=== PATIENT | male | born 1990 | race Hispanic/Latino ===

== ENCOUNTER 2017-11-26 10:01 | Emergency (ER) | payer SELFPAY ==
--- NOTE | 2017-11-26 10:29 | RAD ---
RIGHT HAND 3 VIEWS: Date: 11/26/17 HISTORY: Punched a wall. Injury. COMPARISON: None. FINDINGS: No displaced fracture or malalignment. Soft tissues unremarkable. IMPRESSION: No displaced fracture or malalignment. POS: [facility]
[2017-11-26] MEDS ORDERED: Bacitracin Zinc 1 Packet ONE (12:29)
[2017-11-26] MEDS ORDERED: Lidocaine 1% PF 5 ML VIAL ONE (12:29)
[2017-11-26] MEDS ORDERED: Adacel (T-DAP) 0.5 ML VIAL ONE ×2 (12:30→12:32)
[2017-11-26] MEDS ORDERED: cefTRIAXone\\ROCEPHIN 500 MG VIAL ONE (12:31)
== END 2017-11-26 13:11 | disposition home or self-care (01) ==
LOC: ERS 10:01
DX: S61.452A Open bite of left hand, initial encounter (principal); J45.909 Unspecified asthma, uncomplicated; F90.9 Attention-deficit hyperactivity disorder, unspecified type; Y04.1XXA Assault by human bite, initial encounter
CPT/HCPCS: 90471; 90715; 96372; J0696; J2001

== ENCOUNTER 2018-06-27 07:32 | Emergency (ER) | payer SELFPAY ==
[2018-06-27] MEDS ORDERED: Ondansetron ODT 8 MG TAB ONE (07:54)
--- NOTE | 2018-06-27 08:58 | RAD ---
LEFT SHOULDER 3 VIEWS: Date: 06/27/18 HISTORY: Left shoulder pain, injury. FINDINGS/IMPRESSION: No fracture or dislocation is identified. POS: OFF
[2018-06-27 09:21] LABS: #Basophils 0.1 thou/uL (0.0-0.2); #Eosinphils 0.1 thou/uL (0.0-0.7); #Lymphocytes 1.6 thou/uL (1.20-3.40); #Monocytes 0.7 thou/uL (0.11-0.59); #Neutrophils 6.5 thou/uL (1.40-6.50); %Basophils 0.6 % (0.0-1.0); %Eosinophils 0.7 % (0.0-10.0); %Lymphocytes 17.9 % (21.0-51.0); %Monocytes 8.2 % (0.0-10.0); %Neutrophils 72.5 % (42.0-75.0); Hemoglobin 16.5 g/dL (14.0-18.0); Mean Corpuscular HGB CONC 34.9 g/dL (32.0-36.0); Mean Corpuscular Volume 88.9 fL (78.0-98.0); Mean Platelet Volume 7.1 fL (7.4-10.4); Platelet Count 234 thou/uL (130-400); RBC Distribution Width 12.8 % (11.5-14.5); Red Blood Cell (RBC) Count 5.32 mill/uL (4.70-6.10); White Blood Cell (WBC) Count 8.9 thou/uL (4.8-10.8)
[2018-06-27] MEDS ORDERED: Morphine 4 MG/ML VIAL ONE (09:26)
--- NOTE | 2018-06-27 09:35 | RAD ---
RADIOGRAPH CHEST 1 VIEW: Date: 07-28-18 Time: 8:58 A.M. HISTORY: 28-year-old male with chest pain. Severe nausea and emesis. COMPARISON: 07-01-13 FINDINGS: Lungs are hypoinflated on the current study. New finding of a cluster of transversely oriented plate- like densities at the left lower lung zone laterally. The rest of the visualized lung perry are heather r. Magnification of the cardiac shadow. No pulmonary edema, pneumothorax, or pneumoperitoneum. IMPRESSION: 1. Pulmonary densities at the left base are consistent with either subsegmental atelectasis or pulmon raman scarring. 2. The rest of the lungs are clear. [place] POS: DEANNA
[2018-06-27 09:43] LABS: ALT (SGPT) 37 U/L (8-55); AST (SGOT) 27 U/L (5-34); Albumin 4.4 g/dL (3.5-5.0); Alkaline Phosphatase 91 U/L (40-150); Anion Gap 13 mmol/L (10-20); BUN (Urea Nitrogen) 12 mg/dL (8.9-20.6); Bilirubin, Total 0.6 mg/dL (0.2-1.2); Calc. Creatinine Clearance 0 mL/min (70-130); Calcium 9.4 mg/dL (7.8-10.44); Carbon Dioxide 23 mmol/L (22-29); Chloride 108 mmol/L (98-107); Estimated GFR-MDRD Greater than 90; Globulin 2.9 g/dL (2.4-3.5); Glucose 105 mg/dL (70-105); Potassium 3.7 mmol/L (3.5-5.1); Protein, Total 7.3 g/dL (6.0-8.3); Sodium 140 mmol/L (136-145)
[2018-06-27] MEDS ORDERED: ISOVUE-370 76%-LOCM 1 ML ONE (09:58)
[2018-06-27] MEDS ORDERED: Ketorolac Tromethamine 30 MG/ML VIAL ONE (10:07)
--- NOTE | 2018-06-27 10:33 | CT ---
CT BRAIN WITHOUT CONTRAST CT ANGIOGRAM HEAD WITH CONTRAST CT ANGIOGRAM NECK WITH CONTRAST: Date: 06/27/18 HISTORY: Left-sided neck pain and headache. COMPARISON: Brain CT from 2001. FINDINGS: No acute territorial infarct or hemorrhage. No midline shift or mass effect. Ventricular size and ext ra-axial CSF spaces are normal. Calvarium is intact. Paranasal sinuses and mastoids are clear. Globes are normal. The lung apices are clear. The cervical spinal alignment is normal. The vertebral arteries are codominant. No evidence of injury. [place] of [place] patent. No thrombosis, stenosis, nor aneurysm formation. No evidence of carotid dissection. IMPRESSION: 1. No acute intracranial abnormality. 2. No intracranial thrombosis, stenosis, nor aneurysm formation. 3. No evidence of carotid dissection. POS: DEANNA
--- NOTE | 2018-06-29 20:19 | EKG ---
Test Reason : Blood Pressure : / mmHG Vent. Rate : 089 BPM Atrial Rate : 089 BPM P-R Int : 148 ms QRS Dur : 084 ms QT Int : 362 ms P-R-T Axes : 020 068 020 degrees QTc Int : 440 ms Normal sinus rhythm Normal ECG Confirmed by MURPHY HOBSON, OSWALDO ([id number]), editor farm journal JULITA OBRIEN ([id number]) on 06/29/2018 8:19:20 PM Referred By: Confirmed By:OSWALDO ARRINGTON MD
== END 2018-06-27 10:37 | disposition home or self-care (01) ==
LOC: ERS 07:32
DX: S49.92XA Unspecified injury of left shoulder and upper arm, initial encounter (principal); F17.210 Nicotine dependence, cigarettes, uncomplicated; X58.XXXA Exposure to other specified factors, initial encounter
CPT/HCPCS: 70496; 70498; 71045; 80053; 85025; 93005; 96361; 96374; 96375; J1885; J2270

== ENCOUNTER 2018-09-23 08:13 | Emergency (ER) | payer SELFPAY ==
[2018-09-23 08:39] LABS: #Basophils 0.1 thou/uL (0.0-0.2); #Eosinphils 0.1 thou/uL (0.0-0.7); #Lymphocytes 1.3 thou/uL (1.20-3.40); #Monocytes 1.2 thou/uL (0.11-0.59); #Neutrophils 6.2 thou/uL (1.40-6.50); %Basophils 0.8 % (0.0-1.0); %Eosinophils 1.3 % (0.0-10.0); %Lymphocytes 14.6 % (21.0-51.0); %Monocytes 13.3 % (0.0-10.0); %Neutrophils 70.1 % (42.0-75.0); Hemoglobin 16.7 g/dL (14.0-18.0); Mean Corpuscular HGB CONC 34.5 g/dL (32.0-36.0); Mean Corpuscular Hemoglobin 30.5 pg (27.0-31.0); Mean Corpuscular Volume 88.5 fL (78.0-98.0); Mean Platelet Volume 7.6 fL (7.4-10.4); Platelet Count 245 thou/uL (130-400); RBC Distribution Width 12.4 % (11.5-14.5); Red Blood Cell (RBC) Count 5.49 mill/uL (4.70-6.10); White Blood Cell (WBC) Count 8.8 thou/uL (4.8-10.8)
[2018-09-23 09:07] LABS: ALT (SGPT) 34 U/L (8-55); AST (SGOT) 24 U/L (5-34); Albumin 4.4 g/dL (3.5-5.0); Alkaline Phosphatase 104 U/L (40-150); Anion Gap 11 mmol/L (10-20); BUN (Urea Nitrogen) 9 mg/dL (8.9-20.6); Bilirubin, Total 0.7 mg/dL (0.2-1.2); Calc. Creatinine Clearance 0 mL/min (70-130); Calcium 9.4 mg/dL (7.8-10.44); Carbon Dioxide 24 mmol/L (22-29); Chloride 104 mmol/L (98-107); Estimated GFR-MDRD Greater than 90; Globulin 3.1 g/dL (2.4-3.5); Glucose 114 mg/dL (70-105); Lipase 8 U/L (8-78); Potassium 3.6 mmol/L (3.5-5.1); Protein, Total 7.5 g/dL (6.0-8.3); Sodium 135 mmol/L (136-145)
[2018-09-23] MEDS ORDERED: Ondansetron ODT 8 MG TAB ONE (09:46)
[2018-09-23] MEDS ORDERED: Ketorolac Tromethamine 60 MG/2 ML VIAL ONE (09:46)
[2018-09-23 10:14] LABS: Bilirubin Small (Negative); Blood, Urine Negative (Negative); Clarity CLEAR (Clear); Glucose, Urine (Dipstick) Negative (Negative); Leukocyte Negative (Negative); Nitrite Negative (Negative); Protein, Urine (Dipstick) Negative (Neg-Trace); Specific Gravity, Urine 1.028 (1.002-1.036)
== END 2018-09-23 10:53 | disposition home or self-care (01) ==
LOC: ERS 08:13
DX: B34.9 Viral infection, unspecified (principal); R11.2 Nausea with vomiting, unspecified; R10.11 Right upper quadrant pain; R19.7 Diarrhea, unspecified; J45.909 Unspecified asthma, uncomplicated; F17.210 Nicotine dependence, cigarettes, uncomplicated
CPT/HCPCS: 36415; 80053; 81003; 83690; 85025; 87804; 96372; J1885

== ENCOUNTER 2019-06-27 08:35 | Emergency (ER) | payer SELFPAY ==
[2019-06-27 09:21] LABS: #Basophils 0.1 thou/uL (0.0-0.2); #Eosinphils 0.2 thou/uL (0.0-0.7); #Lymphocytes 1.8 thou/uL (1.20-3.40); #Monocytes 0.5 thou/uL (0.11-0.59); #Neutrophils 4.7 thou/uL (1.40-6.50); %Basophils 0.9 % (0.0-1.0); %Eosinophils 3.3 % (0.0-10.0); %Lymphocytes 24.7 % (21.0-51.0); %Monocytes 6.5 % (0.0-10.0); %Neutrophils 64.6 % (42.0-75.0); Mean Corpuscular HGB CONC 33.9 g/dL (32.0-36.0); Mean Corpuscular Hemoglobin 30.2 pg (27.0-31.0); Mean Corpuscular Volume 89.2 fL (78.0-98.0); Mean Platelet Volume 7.9 fL (7.4-10.4); Platelet Count 226 thou/uL (130-400); RBC Distribution Width 12.8 % (11.5-14.5); Red Blood Cell (RBC) Count 4.98 mill/uL (4.70-6.10); White Blood Cell (WBC) Count 7.3 thou/uL (4.8-10.8)
[2019-06-27] MEDS ORDERED: Haloperidol Lactate 5 MG/ML VIAL ONE (09:28)
[2019-06-27 09:49] LABS: ALT (SGPT) 40 U/L (8-55); AST (SGOT) 29 U/L (5-34); Alkaline Phosphatase 105 U/L (40-150); Anion Gap 13 mmol/L (10-20); BUN (Urea Nitrogen) 11 mg/dL (8.9-20.6); Bilirubin, Total 0.2 mg/dL (0.2-1.2); CK (CPK) 153 U/L (30-200); Calc. Creatinine Clearance 0 mL/min (70-130); Calcium 8.7 mg/dL (7.8-10.44); Carbon Dioxide 23 mmol/L (22-29); Chloride 106 mmol/L (98-107); Estimated GFR-MDRD Greater than 90; Globulin 2.7 g/dL (2.4-3.5); Glucose 120 mg/dL (70-105); Lipase 23 U/L (8-78); Protein, Total 6.7 g/dL (6.0-8.3); Sodium 138 mmol/L (136-145)
[2019-06-27] MEDS ORDERED: Ketorolac Tromethamine 60 MG/2 ML VIAL ONE (10:13)
== END 2019-06-27 10:58 | disposition home or self-care (01) ==
LOC: ERS 08:35
DX: K52.9 Noninfective gastroenteritis and colitis, unspecified (principal); J45.909 Unspecified asthma, uncomplicated; F90.9 Attention-deficit hyperactivity disorder, unspecified type; F17.210 Nicotine dependence, cigarettes, uncomplicated
CPT/HCPCS: 36415; 80053; 82550; 83690; 85025; 96372; 99284; J1630; J1885

== ENCOUNTER 2025-08-01 20:45 | Emergency (ER) | payer SELFPAY ==
[2025-08-01] MEDS ORDERED: Ketorolac Tromethamine 30 MG (1 mL) VIAL ONE (20:54)
[2025-08-01] MEDS ORDERED: Orphenadrine Citrate 60 MG/2 ML VIAL ONE (21:30)
== END 2025-08-01 22:15 | disposition home or self-care (01) ==
LOC: ERS 20:45
DX: S09.90XA Unspecified injury of head, initial encounter (principal); M25.561 Pain in right knee; M54.2 Cervicalgia; V29.408A Other motorcycle driver injured in collision with unspecified motor vehicles in traffic accident, initial encounter
CPT/HCPCS: 70450; 72125; 96374; 96375; J1885; J2360